=== PATIENT | male | born 1995 | race Hispanic/Latino ===

== ENCOUNTER 2019-04-18 17:59 | Emergency (ER) | payer BC, SELFPAY ==
[2019-04-18 18:10] VITALS: BP 144/78; PULSE 65; RESP 16; TEMP 36.4; O2SAT 98
--- NOTE | 2019-04-18 18:51 | ED.UPPEXIN ---
HPI - Extremity Injury (Upper) General Chief Complaint: Extremity Injury, Upper Stated Complaint: Injury to Right Index Finger Time Seen by Provider: 04/18/19 18:03 Source: patient Mode of arrival: ambulatory Limitations: no limitations History of Present Illness HPI narrative: 23-year-old male presents to urgent care with complaints of area of erythema, swelling and open wound to the proximal aspect of his right index finger for the past 3 to 4 days. Patient has been applying [id number] antiseptic spray with no relief. Patient is concerned he has a spider bite. Patient denies fever, bites, chills, necrotic tissue, numbness or tingling MD complaint: injury to: right and finger (index) Onset (ago): day(s) (3) Other injuries: none Associated symptoms: denies other symptoms Related Data Allergies Allergy/AdvReac Type Severity Reaction Status Date / Time No Known Allergies Allergy Uncoded 12/06/18 18:06 Review of Systems Review of Systems: All systems reviewed & are unremarkable except as noted in HPI and below Constitutional: Constitutional: Denies chills, Denies fatigue, Denies fever(s) and Denies weakness ENT: Denies dysphagia, Denies dizziness and Denies sore throat Respiratory: Respiratory: Denies chest congestion, Denies cough and Denies wheezing Gastrointestinal: Gastrointestinal: Denies abdominal pain, Denies diarrhea, Denies nausea and Denies vomiting Musculoskeletal: Musculoskeletal: Denies back pain, Denies myalgias, Denies arthralgias and Denies muscle cramps Comments: Open wound, redness and swelling to right index finger Neurologic: Denies vertigo, Denies dizziness and Denies syncope Exam Const: General: healthy appearing and no acute distress Nutritional Appearance: well nourished Orientation/consciousness: patient oriented x3 Neck: Neck: normal visual inspection and no lymphadenopathy Resp: Effort & Inspection: normal respiratory effort Auscultation: clear to auscultation bilaterally Cardio: Rate: regular rate Rhythm: regular rhythm Heart sounds: no murmurs Skin: General skin exam: normal color Rashes: no rashes Other: 0.25 cm open wound noted to proximal aspect of right index finger with moderate amount of swelling and erythema noted. There is no significant streaking erythema noted. There is a small amount of serosanguineous fluid coming from open wound. Neuro: General: patient oriented x3 and moves all extremities Extrem: Other: Moderate erythema, swelling and open wound noted to right index finger --please see skin section of examination Psych: Appearance: grossly normal and well kempt Mental Status: mental status grossly normal Affect: normal affect Attitude: cooperative Course Vital Signs Vital signs: Vital Signs Temperature 36.4 C 04/18/19 18:10 Pulse Rate 65 04/18/19 18:10 Respiratory Rate 16 04/18/19 18:10 Blood Pressure 144/78 H 04/18/19 18:10 Pulse Oximetry 98 04/18/19 18:10 Temperature 36.4 C 04/18/19 18:10 Pulse Rate 65 04/18/19 18:10 Respiratory Rate 16 04/18/19 18:10 Blood Pressure 144/78 H 04/18/19 18:10 Pulse Oximetry 98 04/18/19 18:10 MDM - Extremity Injury (Upper) MDM Narrative Medical decision making narrative: Patient refuses Rocephin injection. Patient understands that it is imperative that he monitors his symptoms closely and proceed immediately to the emergency room if his symptoms would worsen. Wound care discussed with patient. Differential Diagnosis Differential diagnosis: Likely other (Avulsion, abrasion, laceration) Critical Care Time Critical Care Time Critical Care Time: No Discharge Plan Discharge Clinical Impression: Cellulitis of finger, right, Accidental spider bite Patient Disposition: Home, Self-Care Condition: Stable Instructions: Cellulitis (ED), Insect Bite or Sting (ED) Additional Instructions: Take medications as prescribed Apply mupirocin ointment to area Monitor your symptoms
== END 2019-04-18 19:03 | disposition home or self-care (01) ==
PROVIDERS: Emergency Provider Nurse Practitioner Family
DX: L03.011 Cellulitis of right finger (principal); S60.460A Insect bite (nonvenomous) of right index finger, initial encounter; W57.XXXA Bitten or stung by nonvenomous insect and other nonvenomous arthropods, initial encounter
CPT/HCPCS: 99213; G0463